=== PATIENT | male | born 1965 | race Caucasian/White ===

== ENCOUNTER 2017-02-24 20:48 | Emergency (ER) | payer OTHER ==
[2017-02-24] MEDS ORDERED: 0.9 % SODIUM CHLORIDE 1,000 ML BAG IV ONE ×2 (21:18→22:36)
[2017-02-24] MEDS ORDERED: ONDANSETRON HCL IV 4 MG/2 ML VIAL IV ONE (21:18)
--- NOTE | 2017-02-24 21:18 | Emergency Department Record ---
History of Present Illness - General Chief Complaint: Abdominal Pain Stated Complaint: ABD PAIN AND FEVER Time Seen by Provider: 02/24/17 21:12 Source: Patient Mode of Arrival: Ambulatory Limitations: Physical limitation - History of Present Illness Initial Comments: 51 yo male presents with abdominal pain and loose stools. He has had loose stools for several weeks between 1-2 months. About 8-9 days ago he noted a low grade fever. He has a "standing" order for Cipro and Flagyl for diverticulitis from Dr Dotson. He finished a one week course but still has some pain like bloating at times. He has unchanged stools that continue to be loose stools. The stools are fairly spaced out. No blood. No vomiting. No fever since the initial fever one week ago. He has had prior colonoscopies. No abdominal surgeries. MD Complaint: Abdominal pain -: Week(s) Location: Diffuse Radiation: None Migration to: No migration Severity: Moderate Quality: Aching Consistency: Constant Improves With: Nothing Worsens With: Nothing Context: Recent antibiotic use Associated Symptoms: Anorexia, Diarrhea, Fever Treatments Prior to Arrival: Other (Finished cipro and flagyl) - Related Data Home Medications Medication Instructions Recorded Confirmed Last Taken Aspirin [Aspirin EC] 81 mg PO DAILY 02/24/17 02/24/17 Unknown Bupropion HCl [Bupropion HCl Sr] 100 mg PO DAILY 02/24/17 02/24/17 Unknown Lisinopril [Zestril] 20 mg PO QHS 02/24/17 02/24/17 Unknown Lisinopril/Hydrochlorothiazide 1 each PO QAM 02/24/17 02/24/17 Unknown [Lisinopril-Hctz 20-25 mg Tab] Pantoprazole Sodium [Protonix] 40 mg PO BID 02/24/17 02/24/17 Unknown Allergies Allergy/AdvReac Type Severity Reaction Status Date / Time NO KNOWN DRUG ALLERGY Allergy Uncoded 03/03/14 10:07 Review of Systems Constitutional: Reports: Fever. Denies: Chills, Malaise, Weakness Eyes: Denies: Eye discharge ENT: Denies: Congestion, Throat pain Respiratory: Denies: Cough, Dyspnea, Hemoptysis, Stridor Cardiovascular: Denies: Chest pain, Palpitations, Syncope Endocrine: Denies: Fatigue Gastrointestinal: Reports: Abdominal pain (cramps), Diarrhea, Nausea. Denies: Constipation, Hematemesis, Hematochezia, Melena, Vomiting Genitourinary: Denies: Dysuria, Frequency, Hematuria, Urgency Musculoskeletal: Denies: Arthralgia, Back pain, Joint swelling, Myalgia, Neck pain Skin: Denies: Bruising, Change in color, Rash Neurological: Denies: Headache Psychiatric: Denies: Anxiety Hematological/Lymphatic: Denies: Blood Clots, Easy bleeding, Easy bruising, Swollen glands Physical Exam - General General Appearance: Alert, Oriented x3, Cooperative, No acute distress Limitations: No limitations - Head Head exam: Atraumatic, Normal inspection - Eye Eye exam: Normal appearance, PERRL. negative: Conjunctival injection, Scleral icterus - ENT ENT exam: Normal exam Ear exam: Normal external inspection Nasal Exam: Normal inspection Mouth exam: Normal external inspection Teeth exam: Normal inspection Throat exam: Normal inspection - Neck Neck exam: Normal inspection, Full ROM. negative: Tenderness - Respiratory Respiratory exam: Normal lung sounds bilaterally. negative: Respiratory distress - Cardiovascular Cardiovascular Exam: Regular rate, Normal rhythm, Normal heart sounds - GI/Abdominal GI/Abdominal exam: Soft, Tenderness (mild diffuse tenderness, no focal tenderness or rebound). negative: Distended, Guarding, Rigid - Rectal Rectal exam: Deferred - exam: Deferred - Extremities Extremities exam: Normal inspection, Full ROM, Normal capillary refill. negative: Tenderness - Back Back exam: Reports: Normal inspection, Full ROM. Denies: Muscle spasm, Rash noted, Tenderness - Neurological Neurological exam: Alert, Normal gait, Oriented X3. negative: Altered - Psychiatric Psychiatric exam: Normal affect, Normal mood. negative: Agitated, Anxious - Skin Skin exam: Dry, Intact, Normal color, Warm Course - Reevaluation(s) Reevaluation #1: The labs were reviewed No acute changes on the CBC K is 3.1. No changes in the LFT's. 02/24/17 22:36 Reevaluation #2: The patient is resting comfortably He has returned from CT awaiting [facility] results. 02/24/17 23:47 Reevaluation #3: The CT scan was read as mild diffuse colonic thickening, raising the possibility of the mild colitis. No obstruction, no mesenteric edema, no free air, no free fluid or abnormal fluid collections. 02/24/17 23:56 02/24/17 23:57 Reevaluation #4: The results were discussed with the patient His labs are unremarkable, his abdomen is soft and non tender He will be placed on a liquid diet and asked to return in the next 24-48 hours for a recheck if any concerns. He can follow up with his PCP and he will be referred back to his GI doctor ( Christiano) 02/24/17 23:59 02/25/17 00:05 Medical Decision Making - Lab Data Result diagrams: 02/24/17 21:00 02/24/17 21:00 Disposition Disposition: Discharge Clinical Impression: Colitis Disposition: Home, Self-Care Condition: (1) Good Instructions: Colitis (ED) Additional Instructions: Liquid diet the next 3 days or until completely comfortable Return to the ER in the next 8-12 hours if any pain increases, vomiting, blood in the stools or any new concerns Call Dr Dotson on Monday You are being referred back to GI doctor (Dr Alvarado) Referrals: TITA ALVARADO [MEDICAL DOCTOR] - [facility] [Provider Group] Forms: Patient Portal Access Time of Disposition: 00:04
[2017-02-24 21:56] LABS: URINE APPEARANCE CLEAR; URINE BILIRUBIN NEGATIVE (NEGATIVE); URINE BLOOD NEGATIVE (NEGATIVE); URINE COLOR YELLOW; URINE GLUCOSE (UA) NEGATIVE (NEGATIVE); URINE KETONE TRACE (NEGATIVE); URINE LEUKOCYTE ESTERASE NEGATIVE (NEGATIVE); URINE NITRITE NEGATIVE (NEGATIVE); URINE PROTEIN NEGATIVE (NEGATIVE); URINE UROBILINOGEN 0.2 E.U./dL (0.20 - 1.00)
[2017-02-24 21:57] LABS: BASO % 0.2 % (0-6); EOS % 2.2 % (0-6); GRAN % 62.5 % (47-80); HEMATOCRIT 46.3 % (42.0-52.0); HEMOGLOBIN 16.4 gm/dl (14.0-18.0); LYMPH % 25.4 % (16-45); MEAN CELL VOLUME 92.8 fl (81-97); MEAN CORPUSCULAR HEMOGLOBIN 32.9 pg (27-33); MEAN CORPUSCULAR HGB CONC 35.4 g/dl (32-36); MEAN PLATELET VOLUME 9.5 fl (7.4-10.4); MONO % 9.7 % (0-9); PLATELET COUNT 275 K/uL (130-400); RED BLOOD COUNT 4.99 M/uL (4.40-5.70); RED CELL DISTRIBUTION WIDTH 14.2 % (11.5-14.5); WHITE BLOOD COUNT W/O DIFF 10.5 K/uL (4.2-12.2)
[2017-02-24 22:07] LABS: ALBUMIN 4.4 gm/dL (3.5-5.0); ALKALINE PHOSPHATASE 90 U/L (38-126); ALT/SGPT 49 U/L (21-72); ANION GAP 9.2 (7-16); AST/SGOT 40 U/L (17-59); BILIRUBIN,TOTAL 0.61 mg/dL (0.2-1.3); BLOOD UREA NITROGEN 17 mg/dL (9-20); CARBON DIOXIDE 28.8 mmol/L (22-30); CREATININE 0.8 mg/dL (0.66-1.25); EST GLOMERULAR FILTRATION RATE > 60 ml/min; GLUCOSE,RANDOM 109 mg/dL (70-110); LIPASE 76 U/L (23-300); TOTAL PROTEIN 7.3 gm/dL (6.3-8.2)
--- NOTE | 2017-02-27 13:51 | CT SCAN REPORT ---
EXAM: CT OF THE ABDOMEN AND PELVIS WITH CONTRAST HISTORY: MID TO LOWER ABDOMINAL PAIN FOR A WEEK, WITH CRAMPS. TECHNIQUE: Axial CT scan of the abdomen and pelvis was performed following the intravenous administration of 100 ml of Omnipaque 300 as the IV contrast. A preliminary report was provided by [facility]. Comparison: CT of the abdomen and pelvis dated 01/29/14. FINDINGS: No calcified gallstones are seen within the gallbladder. Mild diffuse fatty infiltration of the liver with no focal hepatic mass evident. No definite splenic, adrenal, pancreatic, or renal mass identified. Small hiatal hernia. Right inguinal hernia containing adipose tissue, but no bowel, similar to before. Diverticulosis sigmoid colon, but no diverticulitis evident. Oral contrast given has passed throughout the small bowel into the colon with no small bowel obstruction evident. Questionable minor thickening of the wall of the right side of the colon and clinical correlation as to any suspicion of a mild right sided colitis suggested. The appendix is not well seen, but no appendicitis evident. Minor prostate calcification similar to before. No free intraperitoneal air or free intraperitoneal fluid identified. Degenerative disk disease at the lumbosacral interspace. IMPRESSION: 1. SMALL HIATAL HERNIA. 2. DIFFUSE FATTY INFILTRATION OF THE LIVER BEFORE. 3. DIVERTICULOSIS SIGMOID COLON, BUT NO DIVERTICULITIS EVIDENT. 4. RIGHT INGUINAL HERNIA CONTAINING ADIPOSE TISSUE BEFORE. 5. DEGENERATIVE DISK DISEASE AT THE LUMBOSACRAL INTERSPACE AGAIN EVIDENT. 6. QUESTIONABLE MINOR WALL THICKENING IN THE RIGHT SIDE OF THE COLON AND CLINICAL CORRELATION TO ANY EVIDENCE OF A MILD RIGHT SIDED COLITIS SUGGESTED. JOB NUMBER: [id number] [facility]
== END 2017-02-25 00:25 | disposition home or self-care (01) ==
LOC: ER 20:48
DX: K52.9 Noninfective gastroenteritis and colitis, unspecified (principal); R19.7 Diarrhea, unspecified; R10.84 Generalized abdominal pain
CPT/HCPCS: 99284 ×2; 96374; 83690; 85025; 80076; 80048; 81003; 74177; Q9967; J2405; J7030

== ENCOUNTER 2017-10-14 12:53 | Emergency (ER) | payer OTHER ==
[2017-10-14] MEDS ORDERED: AZITHROMYCIN 500 MG TABLET PO ONE (13:01)
[2017-10-14] MEDS ORDERED: BENZONATATE 100 MG CAPSULE PO ONE (13:01)
--- NOTE | 2017-10-14 13:05 | Emergency Department Record ---
History of Present Illness - General Chief Complaint: Cough Stated Complaint: COUGH,CONGESTION,FEVER Time Seen by Provider: 10/14/17 13:01 Source: Patient Mode of Arrival: Ambulatory Limitations: No limitations - History of Present Illness Initial Comments: 52 yo male presents with a cough for 1.5 weeks. The cough is productive with mild green sputum. No blood. He had fevers to about 100. No NVD. No rash. No edema. No sore throat or fever. No underlying lung disease. PCP Mauri MCKINNON Complaint: Cough -: Days(s) (10) Severity: Moderate Quality: Aching Consistency: Constant Improves With: Nothing Worsens With: Nothing Context: Sick contacts Associated Symptoms: Cough Treatments Prior to Arrival: None - Related Data Previous Rx's Medication Instructions Recorded Azithromycin [Zithromax] 250 mg PO DAILY #4 tab 10/14/17 Benzonatate [Tessalon] 1 cap PO Q8H PRN #20 cap 10/14/17 Allergies Allergy/AdvReac Type Severity Reaction Status Date / Time NO KNOWN DRUG ALLERGY Allergy Uncoded 03/03/14 10:07 Review of Systems Constitutional: Reports: Fever. Denies: Chills, Malaise, Weakness Eyes: Denies: Eye discharge ENT: Reports: Congestion. Denies: Ear pain, Epistaxis Respiratory: Reports: Cough. Denies: Dyspnea, Hemoptysis, Stridor, Wheezes Cardiovascular: Denies: Chest pain, Palpitations, Syncope Endocrine: Denies: Fatigue Gastrointestinal: Denies: Abdominal pain, Diarrhea, Nausea, Vomiting Musculoskeletal: Denies: Back pain, Myalgia Skin: Denies: Bruising, Change in color, Rash Neurological: Denies: Numbness, Weakness Psychiatric: Denies: Anxiety Hematological/Lymphatic: Denies: Easy bleeding, Easy bruising, Swollen glands Past Medical History - SOCIAL HISTORY Smoking Status: Never smoker Drug Use: None - RESPIRATORY Hx Respiratory Disorders: No - CARDIOVASCULAR Hx Cardio Disorders: Yes Hx Hypertension: Yes - NEURO Hx Neuro Disorders: No - GI Hx GI Disorders: Yes Hx Diverticulitis: Yes (hx) Hx Reflux: Yes - Hx Genitourinary Disorders: No - ENDOCRINE Hx Endocrine Disorders: No - MUSCULOSKELETAL Hx Musculoskeletal Disorders: No - PSYCH Hx Psych Problems: No - HEMATOLOGY/ONCOLOGY Hx Hematology/Oncology Disorders: No Physical Exam - General General Appearance: Alert, Oriented x3, Cooperative, No acute distress Limitations: No limitations - Head Head exam: Atraumatic, Normal inspection - Eye Eye exam: Normal appearance. negative: Conjunctival injection, Periorbital swelling, Scleral icterus - ENT ENT exam: Normal exam, Mucous membranes moist, Normal orophraynx. negative: Mucous membranes dry Ear exam: Normal external inspection Nasal Exam: Normal inspection. negative: Discharge, Dried blood Mouth exam: Normal external inspection Teeth exam: Normal inspection Throat exam: Normal inspection. negative: Tonsillar erythema, Tonsillomegaly, Tonsillar exudate, R peritonsillar mass, L peritonsillar mass - Neck Neck exam: Normal inspection, Full ROM. negative: Tenderness - Respiratory Respiratory exam: Normal lung sounds bilaterally. negative: Accessory muscle use, Decreased breath sounds, Prolonged expiratory, Respiratory distress, Rhonchi, Stridor, Wheezes - Cardiovascular Cardiovascular Exam: Regular rate, Normal rhythm, Normal heart sounds - GI/Abdominal GI/Abdominal exam: Soft. negative: Tenderness - Rectal Rectal exam: Deferred - exam: Deferred - Extremities Extremities exam: Normal inspection, Full ROM, Normal capillary refill. negative: Pedal edema, Tenderness - Back Back exam: Reports: Normal inspection - Neurological Neurological exam: Alert, Normal gait, Oriented X3 - Psychiatric Psychiatric exam: Normal affect, Normal mood - Skin Skin exam: Dry, Intact, Normal color, Warm Course - Reevaluation(s) Reevaluation #1: 10/14/17 13:04 Vitals reviewed No fever, tachycardia or hypoxia Disposition Disposition: Discharge Clinical Impression: Bronchitis Disposition: Home, Self-Care Condition: (1) Good Instructions: Acute Bronchitis (ED) Additional Instructions: Call your doctor for close follow up Return if any new concerns Prescriptions: Azithromycin [Zithromax] 250 mg PO DAILY #4 tab Benzonatate [Tessalon] 1 cap PO Q8H PRN #20 cap PRN Reason: Cough Forms: Patient Portal Access Time of Disposition: 13:05 Quality - Quality Measures Quality Measures: N/A - Blood Pressure Screening Does Patient Have Any of the Following: No Blood Pressure Classification: Hypertensive Reading Systolic Measurement: 134 Diastolic Measurement: 100 Screening for High Blood Pressure: < Pre-Hypertensive BP, F/U Documented > [ G8950] Pre-Hypertensive Follow-up Interventions: Referral to alternative/primary care provider.
== END 2017-10-14 13:16 | disposition home or self-care (01) ==
LOC: ER 12:53
DX: J20.9 Acute bronchitis, unspecified (principal)
CPT/HCPCS: 99282

== ENCOUNTER 2018-12-15 20:10 | Emergency (ER) | payer OTHER ==
[2018-12-15] MEDS ORDERED: 0.9 % SODIUM CHLORIDE 1,000 ML BAG IV ONE (20:31)
--- NOTE | 2018-12-15 20:32 | Emergency Department Record ---
History of Present Illness - General Chief Complaint: Syncope Stated Complaint: SYNCOPE Time Seen by Provider: 12/15/18 20:18 Source: Patient, Family Mode of Arrival: EMS Limitations: No limitations - History of Present Illness Initial Comments: The patient is here due to having a syncopal episode at home an hour ago. The patient had his L knee replaced yesterday and [place] [facility] [place] He was at home on the cammode when he noticed some drainage of blood from his L knee drain area and became weak and lightheaded. He then called for his who found him pale and lightheaded and he passed out briefly while on the cammode. The patient did not fall and hit his head or injure himself. He also denied any CP, SOB, BHARDWAJ, or unusual pain prior to the episode. The patient states he has a hx of passing out when he visualizes blood and the incident occurred directly after he saw the blood from his surgical site. Presently he is feeling well and is without any complaints. MD Complaint: Snyder faint Onset/Timin -: Minutes(s) Prodromal Symptoms: None Duration of Episode: 5 -: Second(s) Injuries Sustained Associated with Event: None Current Symptoms: None Context: Other Treatments Prior to Arrival: None - Related Data Home Medications Medication Instructions Recorded Confirmed Last Taken Docusate Sodium [Colace] 100 mg PO DAILY 12/15/18 12/15/18 Unknown Hydrocodone/APAP 5/325Mg [[place] 2 each PO Q4H PRN 12/15/18 12/15/18 Unknown 5Mg/325Mg] Tramadol HCl [Ultram] 100 mg PO Q4H PRN 12/15/18 12/15/18 Unknown Allergies Allergy/AdvReac Type Severity Reaction Status Date / Time NO KNOWN DRUG ALLERGY Allergy Uncoded 03/03/14 10:07 Travel Screening - Travel/Exposure Within Last 30 Days Have you traveled within the last 30 days?: No Review of Systems Constitutional: Denies: Chills, Fever Eyes: Denies: Eye discharge ENT: Denies: Congestion Respiratory: Denies: Cough, Dyspnea Cardiovascular: Denies: Arrhythmia, Chest pain Endocrine: Denies: Fatigue Gastrointestinal: Denies: Nausea Genitourinary: Denies: Dysuria Musculoskeletal: Denies: Arthralgia Skin: Denies: Bruising Past Medical History - SOCIAL HISTORY Smoking Status: Never smoker Drug Use: None - RESPIRATORY Hx Respiratory Disorders: No - CARDIOVASCULAR Hx Cardio Disorders: Yes Hx Hypertension: Yes - NEURO Hx Neuro Disorders: No - GI Hx GI Disorders: Yes Hx Diverticulitis: Yes (hx) Hx Reflux: Yes - Hx Genitourinary Disorders: No - ENDOCRINE Hx Endocrine Disorders: No - MUSCULOSKELETAL Hx Musculoskeletal Disorders: No - PSYCH Hx Psych Problems: No - HEMATOLOGY/ONCOLOGY Hx Hematology/Oncology Disorders: No Family Medical History Any Significant Family History?: No Physical Exam - General General Appearance: Alert, Oriented x3, Cooperative, No acute distress - Head Head exam: Atraumatic, Normocephalic, Normal inspection - Eye Eye exam: Normal appearance, PERRL, EOMI - ENT Throat exam: Normal inspection. negative: Tonsillar erythema, Tonsillar exudate - Neck Neck exam: Normal inspection, Full ROM. negative: Tenderness - Respiratory Respiratory exam: Normal lung sounds bilaterally. negative: Respiratory distress - Cardiovascular Cardiovascular Exam: Regular rate, Normal rhythm, Normal heart sounds - GI/Abdominal GI/Abdominal exam: Soft, Normal bowel sounds. negative: Tenderness - Extremities Extremities exam: Tenderness (The L knee is in a dressing but the surgical site is visualized and appears very clean and without any drainge or bleeding. There is no longer any drainage or bleeding from the previous drain site.). negative : Normal inspection, Full ROM - Neurological Neurological exam: Alert. negative: Motor sensory deficit - Psychiatric Psychiatric exam: negative: Anxious - Skin Skin exam: negative: Rash Course Vital Signs 12/15/18 20:11 Temperature 97.9 F Pulse Rate 55 L Respiratory 20 Rate Blood Pressure 113/72 Pulse Ox 99 - Reevaluation(s) Reevaluation #1: The patient is doing very well at this time. It appears very clear the patient had a vasovagal episode due to visualizing blood. He is to continue his post- operative plan and to return to the ER for any problems. 12/15/18 21:26 Medical Decision Making - Data Complexity MDM Data: EKG Ordered and/or Reviewed - Lab Data Result diagrams: 12/15/18 20:20 12/15/18 20:20 - EKG Data -: EKG Interpreted by Me EKG: No Acute Changes, Normal EKG Disposition Disposition: Discharge Clinical Impression: Vasovagal syncope Disposition: Home, Self-Care Condition: (2) Stable Instructions: Syncope (ED) Additional Instructions: Please drink plenty of fluids and continue your post-operative orders. Please return to the ER for any worsening issues or problems. Forms: Patient Portal Access Time of Disposition: 21:28 Quality - Quality Measures Quality Measures: N/A - Blood Pressure Screening View Details: Yes Does Patient Have Any of the Following: No Blood Pressure Classification: Normal BP Reading Systolic Measurement: 113 Diastolic Measurement: 72 Screening for High Blood Pressure: < Normal BP, F/U Not Required > [G8783]
[2018-12-15 20:36] LABS: BASO % 0.1 % (0-6); EOS % 0.9 % (0-6); GRAN % 65.2 % (47-80); HEMATOCRIT 37.6 % (42.0-52.0); HEMOGLOBIN 13.3 gm/dl (14.0-18.0); LYMPH % 25.1 % (16-45); MEAN CELL VOLUME 88.9 fl (81-97); MEAN CORPUSCULAR HEMOGLOBIN 31.4 pg (27-33); MEAN CORPUSCULAR HGB CONC 35.4 g/dl (32-36); MEAN PLATELET VOLUME 8.9 fl (7.4-10.4); MONO % 8.7 % (0-9); PLATELET COUNT 274 K/uL (130-400); RED BLOOD COUNT 4.23 M/uL (4.40-5.70); RED CELL DISTRIBUTION WIDTH 14.5 % (11.5-14.5); WHITE BLOOD COUNT W/O DIFF 13.8 K/uL (4.2-12.2)
[2018-12-15 20:49] LABS: BLOOD UREA NITROGEN 15 mg/dL (6-20); CREATININE 0.6 mg/dL (0.7-1.2); EST GLOMERULAR FILTRATION RATE > 60 mL/min
[2018-12-15 20:50] LABS: TOTAL PROTEIN 6.5 g/dL (6.6-8.7)
[2018-12-15 20:52] LABS: GLUCOSE,RANDOM 106 mg/dL (74-109)
[2018-12-15 20:54] LABS: ALT/SGPT 18 U/L (<41)
[2018-12-15 20:55] LABS: ALB/GLOB RATIO 1.6 (1.1-1.8); ALKALINE PHOSPHATASE 71 U/L (55-149); AST/SGOT 19 U/L (10.0-50.0)
== END 2018-12-15 21:51 | disposition home or self-care (01) ==
LOC: ER 20:10
DX: R55 Syncope and collapse (principal); I10 Essential (primary) hypertension
CPT/HCPCS: 80053; 85025; 93005; 93010; 99284; J7030

== ENCOUNTER 2019-08-20 17:10 | Emergency (ER) | payer OTHER ==
--- NOTE | 2019-08-20 17:27 | Emergency Department Record ---
History of Present Illness - General Chief complaint: Pain Stated complaint: LT RIB PAIN Time Seen by Provider: 08/20/19 17:21 Source: Patient Mode of Arrival: Ambulatory Limitations: No limitations - History of Present Illness Initial comments: 53 yo male presents with left rib pain. He reports he was cutting wood on Monday. He had notched out a tree that did not fall. She rammed into it injuring his ribs. He has tender mid lateral ribs and pain with inspiration. No other injuries. No abdominal pain. No hemoptysis. No cough. NO fever. MD Complaint: Other (rib pain) Onset/Timin -: Days(s) -: Yes Associated chest pain Radiation: Proximal Severity scale (1-10): 8 Quality: Aching Consistency: Constant Worsens with: Exertion Associated Symptoms: Denies other symptoms - Related Data Home Medications Medication Instructions Recorded Confirmed Last Taken Methotrexate Sodium [Trexall] 2.5 mg PO DAILY 08/20/19 08/20/19 Unknown Pantoprazole Sodium [Protonix] 20 mg PO DAILY 08/20/19 08/20/19 Unknown Previous Rx's Medication Instructions Recorded Hydrocodone/APAP 5/325Mg [[place] 1 each PO Q6H #12 tab 08/20/19 5Mg/325Mg] Allergies Allergy/AdvReac Type Severity Reaction Status Date / Time NO KNOWN DRUG ALLERGY Allergy no Uncoded 08/20/19 17:19 allergies Travel Screening - Travel/Exposure Within Last 30 Days Have you traveled within the last 30 days?: No Review of Systems Constitutional: Denies: Chills, Fever, Weakness Eyes: Denies: Eye discharge ENT: Denies: Congestion, Throat pain Respiratory: Denies: Cough, Dyspnea Cardiovascular: Reports: Chest pain (left ribs) Endocrine: Denies: Fatigue, Polydipsia, Polyuria Gastrointestinal: Denies: Abdominal pain, Diarrhea, Nausea, Vomiting Genitourinary: Denies: Dysuria, Frequency, Hematuria Musculoskeletal: Denies: Arthralgia, Back pain, Myalgia, Neck pain Skin: Denies: Bruising, Change in color, Rash Neurological: Denies: Numbness, Weakness Psychiatric: Denies: Anxiety Hematological/Lymphatic: Denies: Easy bleeding, Easy bruising Past Medical History - SOCIAL HISTORY Smoking Status: Never smoker Drug Use: None - RESPIRATORY Hx Respiratory Disorders: No - CARDIOVASCULAR Hx Cardio Disorders: Yes Hx Hypertension: Yes - NEURO Hx Neuro Disorders: No - GI Hx GI Disorders: Yes Hx Diverticulitis: Yes (hx) Hx Reflux: Yes - Hx Genitourinary Disorders: No - ENDOCRINE Hx Endocrine Disorders: No - MUSCULOSKELETAL Hx Musculoskeletal Disorders: No - PSYCH Hx Psych Problems: No - HEMATOLOGY/ONCOLOGY Hx Hematology/Oncology Disorders: No Physical Exam - General General Appearance: Alert, Oriented x3, Cooperative, No acute distress Limitations: No limitations - Head Head exam: Atraumatic, Normal inspection - Eye Eye exam: Normal appearance, PERRL. negative: Conjunctival injection, Scleral icterus - ENT ENT exam: Normal exam, Mucous membranes moist Ear exam: Normal external inspection Nasal Exam: Normal inspection Mouth exam: Normal external inspection - Neck Neck exam: Normal inspection - Respiratory Respiratory exam: Normal lung sounds bilaterally, Chest wall tenderness. negative: Accessory muscle use, Decreased breath sounds, Prolonged expiratory, Rhonchi, Stridor, Wheezes - Cardiovascular Cardiovascular Exam: Regular rate, Normal rhythm, Normal heart sounds - GI/Abdominal GI/Abdominal exam: Soft, Other (No left upper quadrant tenderness). negative: Distended, Guarding, Rebound, Rigid, Tenderness - Rectal Rectal exam: Deferred - exam: Deferred - Extremities Extremities exam: Normal inspection Image of Full Body: 1 - normal inspection, tender to palpation - Back Back exam: Denies: CVA tenderness (R), CVA tenderness (L), Full ROM, Muscle spasm, Rash noted, Tenderness - Neurological Neurological exam: Alert, Oriented X3 - Psychiatric Psychiatric exam: Normal affect, Normal mood - Skin Skin exam: Dry, Intact, Normal color, Warm Course Vital Signs 08/20/19 17:16 Temperature 98.6 F Pulse Rate 50 L Respiratory 18 Rate Blood Pressure 155/87 Pulse Ox 99 - Reevaluation(s) Reevaluation #1: 08/20/19 17:21 Vitals reviewed No acute abnormality. No hypoxia. CXR was read as normal We discussed home care, reasons to return and follow up We discussed deep breathing exercises. He has an I/S at home. Disposition Disposition: Discharge Clinical Impression: Contusion of rib on left side Disposition: Home, Self-Care Condition: (1) Good Instructions: Rib Contusion (ED) Additional Instructions: Review this ER visit and the tests performed with your family doctor Call your doctor for the next available follow up appointment Return to the ER for a recheck if worse, any new concerns or questions Take the prescriptions provided as directed for pain Take deep breath several times an hour as we discussed Prescriptions: Hydrocodone/APAP 5/325Mg [[place] 5Mg/325Mg] 1 each PO Q6H #12 tab Forms: Patient Portal Access Time of Disposition: 18:17 Quality - Quality Measures Quality Measures: N/A - Blood Pressure Screening Does Patient Have Any of the Following: No Blood Pressure Classification: Pre-Hypertensive BP Reading Systolic Measurement: 155 Diastolic Measurement: 87 Screening for High Blood Pressure: < Pre-Hypertensive BP, F/U Documented > [G8950] Pre-Hypertensive Follow-up Interventions: Referral to alternative/primary care provider.
[2019-08-20] MEDS: HYDROCODONE/APAP 5/325MG TABLET PO ONE (18:22)
--- NOTE | 2019-08-21 11:23 | RADIOLOGY REPORT ---
EXAMINATION: Left Ribs with Frontal View Chest, Minimum Three Views EXAM DATE: 08/20/2019 6:54 PM TECHNIQUE: AP and oblique views of the left ribs with frontal view of the chest INDICATION: left rib injury mid to lower COMPARISON: none ENCOUNTER: Initial FINDINGS: Chest: The heart, mediastinum and pulmonary vasculature are normal. No lung consolidation or pleu ral effusions are present. Postsurgical changes lower cervical spine. Left ribs: There is no acute rib fracture. There is no lytic or blastic bone lesion. IMPRESSION: Normal chest. No rib fractures. Dictated by: Lane Dixon MD on 08/21/2019 11:19 AM. .
== END 2019-08-20 18:25 | disposition home or self-care (01) ==
LOC: ER 17:10
DX: S20.212A Contusion of left front wall of thorax, initial encounter (principal); W22.09XA Striking against other stationary object, initial encounter; Y93.H9 Activity, other involving exterior property and land maintenance, building and construction; Y92.89 Other specified places as the place of occurrence of the external cause; I10 Essential (primary) hypertension
CPT/HCPCS: 99283